=== PATIENT | female | born 1980 | race Caucasian/White ===

== ENCOUNTER 2016-10-25 09:09 | Emergency (ER) | payer SELFPAY ==
[~2016-10-25] VITALS: Ht 160 cm; Wt 68.2 kg
[2016-10-25 09:13] VITALS: BP 164/109; PULSE 107; TEMP 98.6
[2016-10-25] MEDS ORDERED: NORCO 325 MG-7.1 TAB PO (09:35)
[2016-10-25] MEDS ORDERED: AMOXICILLIN 50500 MG PO (09:35)
== END 2016-10-25 09:40 | disposition home or self-care (01) ==
LOC: COL.ER 09:09
DX: K02.9 Dental caries, unspecified (principal)

== ENCOUNTER 2016-11-19 09:02 | Emergency (ER) | payer SELFPAY ==
[~2016-11-19] VITALS: Ht 160 cm; Wt 68.2 kg
[~2016-11-19 09:02] MED LIST: AMOXICILLIN 50500 MG PO; NORCO 325 MG-7.1 TAB PO
[2016-11-19 10:43] VITALS: BP 112/70; PULSE 83; TEMP 98.1
== END 2016-11-19 10:22 | disposition home or self-care (01) ==
LOC: COL.ER 09:02
DX: T22.212A Burn of second degree of left forearm, initial encounter (principal); T31.0 Burns involving less than 10% of body surface; X12.XXXA Contact with other hot fluids, initial encounter